=== PATIENT | female | born 1965 | race Caucasian/White ===

== ENCOUNTER → 2016-12-26 | Outpatient (CLI) | payer BC, OTHER ==
[~2016-12-26] MED LIST: CLX40; LORA-741 PO; METF500T5 PO; OXYC-57 PO
--- NOTE | 2016-12-26 15:05 | DIAGNOSTIC IMAGING REPORT ---
RIGHT SHOULDER 3 VIEWS HISTORY: SHOULDER PAIN Right COMPARISON: None. FINDINGS: There is no fracture or dislocation. Soft tissues are unremarkable. The right clavicle is intact. There is mild AC joint arthropathy. Mild osteoarthritis at the glenohumeral joint. IMPRESSION: No fractures. Mild degenerative changes. Electronically signed by: Yash Gorman M.D. 12/26/2016 3:04 PM Dictated Date/Time: 12/26/2016 3:03 PM
[2016-12-26 18:34] LABS: ESTIMATED AVERAGE GLUCOSE 146 mg/dl; HA1C FLAG Normal (Normal)
== END | disposition home or self-care (01) ==
LOC: C.RADPV 14:30
PROVIDERS: ATTEND Family Medicine
DX: M25.519 Pain in unspecified shoulder (principal)

== ENCOUNTER 2017-04-27 23:53 | Emergency (ER) | payer BC ==
[~2017-04-27] VITALS: Ht 172.7 cm; Wt 93.5 kg
[~2017-04-27 23:53] MED LIST changes: -METF500T5 PO
[2017-04-27 23:56] VITALS: TEMP 36.9; Ht 172.7 cm; Wt 93.5 kg
[2017-04-28] MEDS ORDERED: METF500T5 PO (00:16)
[2017-04-28] MEDS ORDERED: CLX40 (00:16)
[2017-04-28 01:02] LABS: BASO % 0.1 %; BASO ABS # 0.01 K/uL (0-0.2); COMPLETE YES; EOS % 2.5 %; HEMATOCRIT 39.1 % (37-47); IG% 0.1 %; LYMPH % 21.1 %; LYMPH ABS # 1.76 K/uL (1.2-3.4); MEAN CELL VOLUME 86.9 fL (80-100); MEAN CORPUSCULAR HEMOGLOBIN 30.2 pg (25-34); MEAN CORPUSCULAR HGB CONC 34.8 g/dl (32-36); MEAN PLATELET VOLUME 10.3 fL (7.4-10.4); MONO % 6.1 %; NEUT % 70.1 %; PLATELET COUNT 170 K/uL (130-400); WHITE BLOOD COUNT 8.33 K/uL (4.8-10.8)
[2017-04-28] MEDS ORDERED: PANTOprazole SOD 40 MG TAB PO STA (01:09)
[2017-04-28] MEDS ORDERED: KETOROLAC TROMETHAMINE 30 MG/ML VIAL IV STA (01:09)
[2017-04-28 01:11] LABS: URINE APPEARANCE CLEAR (CLEAR); URINE BILIRUBIN NEG (NEG); URINE COLOR YELLOW; URINE NITRITE NEG (NEG); URINE SPECIFIC GRAVITY 1.018 (1.000-1.030); UROBILINOGEN NEG (NEG); ZZUR CULT IF INDIC CLEAN CATCH NO
[2017-04-28 01:12] LABS: MANUAL MICROSCOPIC REQUIRED? NO; REVIEW REQ? NO
[2017-04-28] MEDS ORDERED: SODIUM CHLORIDE 0.9% 1000ML 1,000 ML IV ONE (01:15)
[2017-04-28] MEDS ORDERED: GI COCKTAIL PO ONE (01:15)
[2017-04-28] MEDS ORDERED: LIDOCAINE HCL 2% VISC SOLN 20 ML UDC ONE (01:17)
[2017-04-28] MEDS ORDERED: ALUMINUM/MAGNESIUM SUSP 30 ML UDC ONE (01:17)
[2017-04-28 01:28] LABS: ALB/GLOB RATIO 0.8 (0.9-2); BUN/CREATININE RATIO 17.1 (10-20); CALCIUM 9.3 mg/dl (8.5-10.1); CREATININE 0.84 mg/dl (0.60-1.20); POTASSIUM 4.3 mmol/L (3.5-5.1)
[2017-04-28] MEDS ORDERED: ONDANSETRON HOME PACK 4MG OD TAB PO ONE (04:30)
[2017-04-28] MEDS ORDERED: NORCO 5/325MG HOME PACK PO ONE (04:30)
[2017-04-28 04:51] VITALS: PULSE 59; O2SAT 97
[2017-04-28 05:02] VITALS: BP 141/75
--- NOTE | 2017-04-28 06:48 | DIAGNOSTIC IMAGING REPORT ---
ABDOMEN LIMITED (US) HISTORY: Pain. Nausea. RUQ abd pain. No gallbladder. COMPARISON: None. FINDINGS: Pancreas: Poorly seen due to overlying bowel content Liver: Fatty infiltration Gallbladder: Previously resected CBD: 6 mm Right kidney: No hydronephrosis. IMPRESSION: Fatty infiltration of liver. Otherwise negative study post cholecystectomy. The above report was generated using voice recognition software. It may contain grammatical, syntax or spelling errors. Electronically signed by: Donal Auguste M.D. 04/28/2017 6:47 AM Dictated Date/Time: 04/28/2017 6:46 AM
--- NOTE | 2017-04-28 07:03 | DIAGNOSTIC IMAGING REPORT ---
ABDOMEN 2VIEW W/PA CHEST RTN CLINICAL HISTORY: 51 years-old Female presenting with epigastric/ruq abd pain. TECHNIQUE: PA view of the chest and supine and upright views of the abdomen were obtained. COMPARISON: Supine radiograph of the abdomen from 11/28/2013. FINDINGS: Cardiomediastinal silhouette normal. Suggestion of punctate nodular opacities in the peripheral lung bilaterally, which may represent old calcified granulomas. Lungs and pleural spaces otherwise clear. Apparent enlargement of the liver shadow, measuring nearly 25 cm in maximal sagittal dimension. No calcification projects over the kidneys to suggest nephrolithiasis. Mild stool burden throughout the colon. Normal bowel gas pattern. No evidence of free intraperitoneal gas, pneumatosis, or portal venous gas. Osseous structures normal. IMPRESSION: 1. No acute cardiopulmonary disease. 2. Suggestion of hepatomegaly, although this could be due to magnification or Sylvia lobe configuration. No other radiographic evidence of acute intra-abdominal pathology. Electronically signed by: Ever Alvarado M.D. 04/28/2017 7:02 AM Dictated Date/Time: 04/28/2017 6:58 AM
--- NOTE | 2017-04-29 02:51 | EMERGENCY ROOM VISIT NOTE ---
History First contact with patient: 00:56 Chief Complaint: ABDOMINAL PAIN Stated Complaint: STOMACH PAIN Nursing Triage Summary: Abdominal pain late Monday night, constant epigastric pain, non-radiating. No nausea or diarrhea. No other complaints voiced. History of Present Illness The patient is a 51 year old female who presents to the Emergency Room with complaints of epigastric and right upper quadrant abdominal pain for the past 12 hours. The patient has a history of this in the past, and states that she had pancreatitis associated with gallbladder disease. Her gallbladder has been removed. She has not had symptoms like this until today since the removal of her gallbladder. She is without nausea, vomiting, or diarrhea. No lower tenderness or discomfort. She does not identify aggravating or alleviating factors. No chest pain or shortness of breath. She rates her current discomfort a 5/10 and has not taken anything [id number] for her discomfort. Review of Systems More than 10 systems were reviewed and otherwise negative with the exception of history of present illness. Past Medical/Surgical History History of cholecystectomy Family History No pertinent family history Social History Smoking Status: Never Smoker Current/Historical Medications Scheduled Citalopram (Citalopram Hydrobromide), 40 MG DAILY Metformin Hcl Er (Glucophage Er), 1,000 MG PO BIDM Scheduled PRN Lorazepam (Ativan), 0.5 MG PO Q6H PRN for Anxiety/Agitation Allergies Coded Allergies: Adhesives (Verified Allergy, Intermediate, RASH, 04/28/17) Physical Exam Vital Signs Date Time Temp Pulse Resp B/P (MAP) Pulse Ox O2 Delivery O2 Flow Rate FiO2 04/28/17 05:02 141/75 04/28/17 04:51 59 22 97 04/28/17 04:47 65 04/28/17 04:36 58 22 97 04/28/17 04:30 142/86 04/28/17 04:21 58 96 04/28/17 04:06 66 97 04/28/17 04:01 133/89 04/28/17 03:51 60 97 04/28/17 03:36 60 23 96 04/28/17 03:31 140/75 04/28/17 03:27 63 24 96 04/28/17 03:12 59 18 97 04/28/17 03:00 128/85 04/28/17 02:57 67 24 96 04/28/17 02:27 60 98 7/21/17 02:22 63 97 04/28/17 02:07 64 97 04/28/17 02:02 135/85 04/28/17 01:28 68 17 98 04/28/17 01:13 72 15 99 04/28/17 01:08 69 17 97 04/28/17 01:01 153/90 04/28/17 00:53 69 17 98 04/28/17 00:38 69 19 98 04/28/17 00:30 67 04/28/17 00:30 146/95 04/28/17 00:17 144/74 04/27/17 23:56 36.9 82 20 153/87 100 Room Air Pain Rating (0-10): 0 Physical Exam VITALS: Vitals are noted on the nurse's note and reviewed by myself. Vital signs stable. GENERAL: Well-developed, well-nourished, white female, who is in no acute distress and resting comfortably. Patient is cooperative with the examination. HEART: Regular rate and rhythm without murmurs gallops or rubs. LUNGS: Clear to auscultation bilaterally without wheezes, rales or rhonchi. No retractions or accessory muscle use. ABDOMEN: Positive normal bowel sounds x 4. Soft with right upper quadrant tenderness on palpation. No rebound or guarding. No lower abdominal tenderness. No CVA tenderness. MUSCULOSKELETAL: No muscle atrophy, erythema, or edema noted. Full range of motion without joint tenderness in all extremities. Medical Decision & Procedures ER Provider Diagnostic Interpretation: ABDOMEN LIMITED (US) HISTORY: Pain. Nausea. RUQ abd pain. No gallbladder. COMPARISON: None. FINDINGS: Pancreas: Poorly seen due to overlying bowel content Liver: Fatty infiltration Gallbladder: Previously resected CBD: 6 mm Right kidney: No hydronephrosis. IMPRESSION: Fatty infiltration of liver. Otherwise negative study post cholecystectomy. ABDOMEN 2VIEW W/PA CHEST RTN CLINICAL HISTORY: 51 years-old Female presenting with epigastric/ruq abd pain. TECHNIQUE: PA view of the chest and supine and upright views of the abdomen were obtained. COMPARISON: Supine radiograph of the abdomen from 11/28/2013. FINDINGS: Cardiomediastinal silhouette normal. Suggestion of punctate nodular opacities in the peripheral lung bilaterally, which may represent old calcified granulomas. Lungs and pleural spaces otherwise clear. Apparent enlargement of the liver shadow, measuring nearly 25 cm in maximal sagittal dimension. No calcification projects over the kidneys to suggest nephrolithiasis. Mild stool burden throughout the colon. Normal bowel gas pattern. No evidence of free intraperitoneal gas, pneumatosis, or portal venous gas. Osseous structures normal. IMPRESSION: 1. No acute cardiopulmonary disease. 2. Suggestion of hepatomegaly, although this could be due to magnification or Sylvia lobe configuration. No other radiographic evidence of acute intra-abdominal pathology. Laboratory Results 04/28/17 00:40 Red Blood Count 4.50, Mean Corpuscular Volume 86.9, Mean Corpuscular Hemoglobin 30.2, Mean Corpuscular Hemoglobin Concent 34.8, Mean Platelet Volume 10.3, Neutrophils (%) (Auto) 70.1, Lymphocytes (%) (Auto) 21.1, Monocytes (%) (Auto) 6.1, Eosinophils (%) (Auto) 2.5, Basophils (%) (Auto) 0.1, Neutrophils # (Auto) 5.83, Lymphocytes # (Auto) 1.76, Monocytes # (Auto) 0.51, Eosinophils # (Auto) 0.21, Basophils # (Auto) 0.01 04/28/17 00:40 Test 04/28/17 00:20 04/28/17 00:40 Urine Color YELLOW Urine Appearance CLEAR (CLEAR) Urine pH 5.0 (4.5-7.5) Urine Specific Pearson 1.018 (1.000-1.030) Urine Protein NEG (NEG) Urine Glucose (UA) NEG (NEG) Urine Ketones NEG (NEG) Urine Occult Blood NEG (NEG) Urine Nitrite NEG (NEG) Urine Bilirubin NEG (NEG) Urine Urobilinogen NEG (NEG) Urine Leukocyte Esterase NEG (NEG) White Blood Count 8.33 K/uL (4.8-10.8) Red Blood Count 4.50 M/uL (4.2-5.4) Hemoglobin 13.6 g/dL (12.0-16.0) Hematocrit 39.1 % (37-47) Mean Corpuscular Volume 86.9 fL (80-100) Mean Corpuscular Hemoglobin 30.2 pg (25-34) Mean Corpuscular Hemoglobin Concent 34.8 g/dl (32-36) Platelet Count 170 K/uL (130-400) Mean Platelet Volume 10.3 fL (7.4-10.4) Neutrophils (%) (Auto) 70.1 % Lymphocytes (%) (Auto) 21.1 % Monocytes (%) (Auto) 6.1 % Eosinophils (%) (Auto) 2.5 % Basophils (%) (Auto) 0.1 % Neutrophils # (Auto) 5.83 K/uL (1.4-6.5) Lymphocytes # (Auto) 1.76 K/uL (1.2-3.4) Monocytes # (Auto) 0.51 K/uL (0.11-0.59) Eosinophils # (Auto) 0.21 K/uL (0-0.5) Basophils # (Auto) 0.01 K/uL (0-0.2) RDW Standard Deviation 42.2 fL (36.4-46.3) RDW Coefficient of Variation 13.2 % (11.5-14.5) Immature Granulocyte % (Auto) 0.1 % Immature Granulocyte # (Auto) 0.01 K/uL (0.00-0.02) Anion Gap 9.0 mmol/L (3-11) Est Creatinine Clear Calc Drug Dose 95.8 ml/min Estimated GFR () 93.9 Estimated GFR (Non- 81.0 BUN/Creatinine Ratio 17.1 (10-20) Calcium Level 9.3 mg/dl (8.5-10.1) Total Bilirubin 0.6 mg/dl (0.2-1) Aspartate Amino Transf (AST/SGOT) 41 U/L (15-37) Alanine Aminotransferase (ALT/SGPT) 59 U/L (12-78) Alkaline Phosphatase 85 U/L (45-117) Total Protein 7.7 gm/dl (6.4-8.2) Albumin 3.5 gm/dl (3.4-5.0) Globulin 4.2 gm/dl (2.5-4.0) Albumin/Globulin Ratio 0.8 (0.9-2) Amylase Level 33 U/L (25-115) Lipase 162 U/L (73-393) Chemistry Specimen Hemolysis Medications Administered Medications (Trade) Dose Ordered Sig/Aroldo Route Start Time Stop Time Status Last Admin Dose Admin Sodium Chloride 1,000 ml @ 999 mls/hr Q1H1M ONCE IV 04/28/17 01:15 04/28/17 02:15 DC 04/28/17 01:22 999 MLS/HR Ketorolac Tromethamine (Toradol Inj) 30 mg NOW STAT IV 04/28/17 01:09 04/28/17 01:12 DC 04/28/17 01:25 30 MG Pantoprazole Sodium (Protonix Tab) 40 mg NOW STAT PO 04/28/17 01:09 04/28/17 01:12 DC 04/28/17 01:25 40 MG Al Hydroxide/Mg Hydroxide (Maalox Susp) 30 ml STK-MED ONCE .ROUTE 04/28/17 01:17 04/28/17 01:18 DC 04/28/17 01:31 30 ML Lidocaine HCl (Viscous Lidocaine 2% Soln) 20 ml STK-MED ONCE .ROUTE 04/28/17 01:17 04/28/17 01:18 DC 04/28/17 01:31 20 ML Acetaminophen/ Hydrocodone Bitart ([place] 5/325mg Home Pack) 1 homepack UD ONCE PO 04/28/17 04:30 04/28/17 04:31 DC 04/28/17 05:02 1 HOMEPACK Ondansetron HCl (ZOFRAN ODT 4MG Home Pack) 1 homepack UD ONCE PO 04/28/17 04:30 04/28/17 04:31 DC 04/28/17 05:01 1 HOMEPACK ED Course Physical exam and history were performed. Nursing notes, EMR, and Medication List were personally reviewed. Patient appears to have right upper quadrant abdominal pain for several hours. She has a history of cholecystectomy but is tender in the right upper quadrant patient. IV access was established and labs were obtained. The patient was hydrated medicated as above. Ultrasound and plain films were performed. The patient's blood work is as above and was reviewed. She does not have elevated white blood cell count, gross anemia, bandemia, or significant electrolyte imbalance. Lipase, amylase, and transaminases are nondiagnostic. Urine is without signs of infection. Plain films are without acute findings. Ultrasound is as above and was also without significant acute findings. The patient was reevaluated multiple times with a course of her stay. She felt much better after the above interventions and did not have progressive worsening of her discomfort. Repeat abdominal exam showed less tenderness. I discussed options of care with the patient, and she feels comfortable with outpatient follow-up. Her symptoms are most likely related to foodborne or viral etiology. They may also represent GERD or similar process. I did recommend that she return to the Emergency Department immediately with any new, worsening, or concerning symptoms. She was pleased with this plan and voiced understanding. She rated her discomfort a 1/10 at the time of departure. The chart was completed utilizing [employer] Speech Voice Recognition Software. Grammatical errors, random word insertions, pronoun errors, and incomplete sentences are an occasional consequence of this system due to software limitations, ambient noise, and hardware issues. Any formal questions or concerns about the content, text, or information contained within the body of this dictation should be directly addressed to the provider for clarification. . Medical Decision Differential diagnosis: Etiologies such as appendicitis, diverticulitis, PUD, biliary pathology, UTI, pancreatitis, obstruction, mesenteric ischemia, aortic pathology, infections, inflammatory bowel disease, renal colic, as well as others were entertained. Impression Primary Impression: Right upper quadrant abdominal pain Departure Information Dispostion Home / Self-Care Condition GOOD Forms Call Back Authorization, HOME CARE DOCUMENTATION FORM, Work Instructions, Additional Instructions: Patient was seen and evaluated today in the emergency department fo medical care. Return to work on 04/30/2017. Please excuse. IMPORTANT VISIT INFORMATION Patient Instructions [facility] Additional Instructions You were seen and evaluated today on an emergency basis only. This is not a substitute for, or an effort to provide, complete comprehensive medical care. It is not possible to recognize and treat all injuries or illnesses in a single emergency department visit. For this reason it is recommended that you followup with your primary care physician in the next 3-4 days for recheck of your condition. Call today to make an appointment. [place] (hydrocodone/acetaminophen) 5/325 mg (homepack) every 6 hours as needed for worsening breakthrough pain. Do not drink or drive on [place]. This medication will likely make you tired. Do not take [place] and Tylenol at the same time as both contain acetaminophen. [place] may cause constipation. You may wish to take an [id number]-kzkhzet stool softener like Colace if this occurs. Zofran 1 tablet every 6 hrs as needed for nausea. You are welcome to return to the emergency department anytime with new, worsening, or concerning symptoms. Work Instructions Additional Work Instructions: Patient was seen and evaluated today in the emergency department for medical care. Return to work on 04/30/2017. Please excuse.
== END 2017-04-28 05:05 | disposition home or self-care (01) ==
LOC: C.EDB 23:53
DX: R10.11 Right upper quadrant pain (principal); Z90.49 Acquired absence of other specified parts of digestive tract